=== PATIENT | male | born 1945 | race Caucasian/White ===

== ENCOUNTER 2017-08-27 11:34 | Emergency (ER) | payer MEDICARE ==
[2017-08-27] MEDS ORDERED: ACETAMINOPHEN 325 MG TABLET PO ONE (11:46)
--- NOTE | 2017-08-27 11:47 | ER Document Report ---
ED Medical Screen (RME) - General Chief Complaint: Pain With Urination Stated Complaint: PAIN/BURNNING WITH URINATION Time Seen by Provider: 08/27/17 11:41 Notes: RAPID MEDICAL EVALUATION DISCLOSURE I have seen this patient as part of a Rapid Medical Evaluation and, if applicable, placed any initially appropriate orders. The patient will be seen and fully evaluated, including a full history and physical exam, by a provider ( in Main ED or Fast Track) when a room becomes available. 72-year-old male here with complaints of burning with urination over the past few days. He performs self-catheterization but cannot tell me what disease he has or why he has to perform self catheterization. He has a history of UTI in the past and antibiotics have worked well for him. He is here visiting his daughter and is from [facility]. EXAM No abdominal tenderness TRAVEL OUTSIDE OF THE [place] IN LAST 30 DAYS: No - Related Data Allergies/Adverse Reactions: No Known Allergies Allergy (Unverified 12/21/15 12:21) Past Medical History Past Surgical History: Reports: Hx Kidney (Renal Surgery) - L nephrectomy
[2017-08-27 12:41] LABS: APPEARANCE,URINE SLIGHTLY-CLOUDY; BILIRUBIN,URINE NEGATIVE (NEGATIVE); COLOR,URINE YELLOW; GLUCOSE, URINE NEGATIVE (NEGATIVE); KETONES,URINE NEGATIVE (NEGATIVE); LEUKOCYTE ESTERASE,URINE LARGE (NEGATIVE); NITRITE,URINE POSITIVE (NEGATIVE); PROTEIN,URINE NEGATIVE (NEGATIVE); URINE SPECIFIC GRAVITY 1.005; UROBILINOGEN,URINE NEGATIVE mg/dL (<2.0)
[2017-08-27] MEDS ORDERED: CEPHALEXIN 500 MG CAPSULE PO ONE (13:25)
[2017-08-27] MEDS ORDERED: CEFUROXIME 250 MG TABLET PO ONE (13:28)
--- NOTE | 2017-08-27 13:33 | ER Document Report ---
ED General - General Chief Complaint: Pain With Urination Stated Complaint: PAIN/BURNNING WITH URINATION Time Seen by Provider: 08/27/17 11:41 TRAVEL OUTSIDE OF THE [place] IN LAST 30 DAYS: No - HPI Patient complains to provider of: Pain with urination Notes: Patient coming in with pain with urination. Patient self caths for an unknown urological condition states is been doing this for years patient states burning with urination thinks he has a urinary tract infection. Patient is visiting from [facility]. Patient denies fevers chills nausea vomiting diarrhea resting comfortably upon my evaluation - Related Data Allergies/Adverse Reactions: No Known Allergies Allergy (Unverified 12/21/15 12:21) Past Medical History - Social History Smoking Status: Never Smoker Chew tobacco use (# tins/day): No Frequency of alcohol use: None Drug Abuse: None Family History: Reviewed & Not Pertinent Patient has suicidal ideation: No Patient has homicidal ideation: No - Past Medical History Cardiac Medical History: Reports: Hx Hypertension Renal/ Medical History: Denies: Hx Peritoneal Dialysis Past Surgical History: Reports: Hx Kidney (Renal Surgery) - L nephrectomy Review of Systems - Review of Systems Constitutional: No symptoms reported EENT: No symptoms reported Cardiovascular: No symptoms reported Respiratory: No symptoms reported Gastrointestinal: No symptoms reported Genitourinary: Dysuria Male Genitourinary: No symptoms reported Musculoskeletal: No symptoms reported Skin: No symptoms reported Hematologic/Lymphatic: No symptoms reported Neurological/Psychological: No symptoms reported Physical Exam - Vital signs Vitals: Temp Pulse Resp BP Pulse Ox 98.7 F 74 18 139/75 H 95 08/27/17 11:38 08/27/17 11:38 08/27/17 11:38 08/27/17 11:38 08/27/17 11:38 Interpretation: Normal - General General appearance: Appears well, Alert - HEENT Head: Normocephalic, Atraumatic Eyes: Normal Pupils: PERRL - Respiratory Respiratory status: No respiratory distress Chest status: Nontender Breath sounds: Normal Chest palpation: Normal - Cardiovascular Rhythm: Regular Heart sounds: Normal auscultation Murmur: No - Abdominal Inspection: Normal Distension: No distension Bowel sounds: Normal Tenderness: Nontender Organomegaly: No organomegaly - Back Back: Normal, Nontender - Extremities General upper extremity: Normal inspection, Nontender, Normal color, Normal ROM , Normal temperature General lower extremity: Normal inspection, Nontender, Normal color, Normal ROM , Normal temperature, Normal weight bearing. No: Adri's sign - Neurological Neuro grossly intact: Yes Cognition: Normal Orientation: AAOx4 Sutton Coma Scale Eye Opening: Spontaneous Sutton Coma Scale Verbal: Oriented Sutton Coma Scale Motor: Obeys Commands Maryann Coma Scale Total: 15 Speech: Normal Motor strength normal: LUE, RUE, LLE, RLE Sensory: Normal - Psychological Associated symptoms: Normal affect, Normal mood - Skin Skin Temperature: Warm Skin Moisture: Dry Skin Color: Normal Course - Re-evaluation Re-evalutation: 08/27/17 15:49 Urinalysis does show signs of urinary tract infection urine culture was sent. Patient's previous cultures were reviewed we will place the patient on Ceftin due to culture results patient was given a dose here in ER and was discharged home. - Vital Signs Vital signs: Temp Pulse Resp BP Pulse Ox 98.1 F 63 18 120/74 98 08/27/17 13:51 08/27/17 13:51 08/27/17 11:38 08/27/17 13:51 08/27/17 13:51 - Laboratory Laboratory results interpreted by me: 08/27/17 11:56 Urine Nitrite POSITIVE H Ur Leukocyte Esterase LARGE H Discharge - Discharge Clinical Impression: Catheter-associated urinary tract infection Qualifiers: Indwelling urinary catheter type: unspecified Encounter type: sequela Qualified Code(s): T83.511S - Infection and inflammatory reaction due to indwelling urethral catheter, sequela Condition: Good Disposition: HOME, SELF-CARE Instructions: Urinary Anesthetic Agent ([facility]), Urinary Tract Infection ([facility]) Additional Instructions: Your urinalysis did not show signs of urinary tract infection. Would recommend thatyoutake the antibiotic as prescribed and also try the Pyridium to help out with pain Tylenol and Motrin for pain control to as well follow-up with your primary care physician. We will send a urine for culture to make sure that we have you on a correct antibiotic. Follow-up with your primary care physician Prescriptions: Cefuroxime Axetil [Ceftin 250 mg Tablet] 1 tab PO BID #20 tablet Phenazopyridine HCl [Pyridium 200 mg Tablet] 200 mg PO TID #20 tablet Forms: Return to Work
[2017-08-27 13:52] VITALS: BP 120/74
== END 2017-08-27 14:18 | disposition home or self-care (01) ==
LOC: ER 11:34
DX: T83.511A Infection and inflammatory reaction due to indwelling urethral catheter, initial encounter (principal); N39.0 Urinary tract infection, site not specified; I10 Essential (primary) hypertension; Z90.5 Acquired absence of kidney
CPT/HCPCS: 99283; 87086; 87088; 81001; 87186; A9270 ×2; J3490